=== PATIENT | male | born 1990 | race Caucasian/White ===

== ENCOUNTER 2016-08-23 14:23 | Emergency (ER) | payer BC, OTHER ==
[2016-08-23] MEDS ORDERED: DIPHTH,PERTUSS(ACELL),TET VAC 0.5 ML VIAL IM ONE ×2 (16:24→16:26)
[2016-08-23 16:34] VITALS: BP 140/79
--- OUTSIDE RECORDS SUMMARY | 2016-08-23 16:35 | XMS REPORT | Continuity of Care Document ---
:1990 Author Organization [facility] ([facility]) Address [address] [place] [address] Phone [phone] Care Team Providers Name Role Phone Unavailable Primary Care Provider Unavailable Source Comments This disclosure is being made pursuant to the Care Everywhere program, applicable federal and state laws, and may not contain all informaitonavailable regarding this patient.[facility] ([facility]) Active Allergies and Adverse Reactions Not on File Current Medications Not on file Active Problems Not on file Social History Tobacco Use Types Packs/Day Years Used Date Never Assessed Plan of Care Health Maintenance Due Date Last Done Comments Hepatitis B Vaccine (1 of 3 - Primary Series) 1990 HPV Vaccine (1 of 3 - Male 3 Dose Series) 2001 Tdap Vaccine 2001 Lipid Disorder Screening 01/29/2008 MMR Vaccine 01/29/2008 Td Vaccine 01/29/2008 Varicella Vaccine (1 of 2 - Adult - No Evidence of 01/29/2008 Immunity) Influenza Vaccine: Seasonal (#1) 11/19/2015 Results from Last 3 Months Not on file
--- NOTE | 2016-08-23 16:56 | ERNOTE ---
Medical Problem HPI - Narrative Date of Service: 08/23/16 - General Chief Complaint: Laceration Time Seen by Provider: 08/23/16 16:23 Source: patient Exam Limitations: no limitations - Immun/Allergies/Home Medications Immunizations: IMMUNIZATION HX Immunizations Up to Date Yes History of Influenza Vaccine No Hx Pneumococcal Vaccination No Allergies/Adverse Reactions: Allergies No Known Allergies Allergy (Verified 08/23/16 16:20) Home Medications: HOME MEDICATIONS NK [No Home Medication] 01/18/14 [Last Taken Unknown] - History of Present History Narrative: 26 room now presents to the emergency room for a laceration to his right knee area. Patient states he was using a rotary fabric blade while he was cutting cardboard and cut through the cardboard strike his right leg. Patient stated this happened this morning. States he glued the wound closed at home with superglue. Patient currently has no c/o pain to area but was brought in buy his girlfriend. Date (Duration): 08/23/16 Timing: resolved prior to arrival Severity: mild Modifying Factors - (Improves): Present: immobilization Review of Systems - Review of Systems Constitutional: Present: no symptoms reported EYE: Present: no symptoms reported ENT: Present: no symptoms reported Respiratory: Present: no symptoms reported Cardiology: Present: no symptoms reported Gastrointestinal/Abdominal: Present: no symptoms reported Genitourinary: Present: no symptoms reported Musculoskeletal: Present: no symptoms reported Skin: Present: See HPI Neurological: Present: no symptoms reported Endocrine: Present: no symptoms reported Hematologic/Lymphatic: Present: no symptoms reported Psych: Present: no symptoms reported All Other Systems: All systems neg except as marked - Patient's Past Medical History Patient History - Medical: No pertinent hx Patient History - Cardiac/Respiratory: No pertinent hx Patient History - Cancer: No Hx of Cancer Patient History - Surgical Procedures: T & A Patient History - Other: None - Social History Living Situations: home Abuse History: No History of abuse Psych History: No pertinent hx Smoking Status: Never smoker Alcohol Use: occasionally Drug Use: none - Immunizations Immunizations Up to Date: Yes Hx Pneumococcal Vaccination: No History of Influenza Vaccine: No Physical Exam - Physical Exam Narrative: patient has a 3cm superficial abrasion to his right upper knee. There is glue surrounding the wound but none appreciated in the wound bed. Wound bed is pink and laceration is very superficial. General Appearance: Present: wd/wn, alert, no apparent distress Eye Exam: Normal inspection: bilateral Ears, Nose, Throat: Present: normal ENT inspection, normal pharynx Neck: Present: normal inspection Respiratory: Present: no respiratory distress, normal breath sounds, no accessory muscle use, lungs clear. Absent: respiratory distress Cardiovascular/Chest: Present: regular rate, rhythm, no murmur, normal peripheral pulses. Absent: irregularly irregular Peripheral Pulses: N=norm/S=strong/W=weak/B=bound/A=absent: Radial (R): Normal, Radial (L): Normal, Dorsalis-pedis (R): Normal, Dorsalis-pedis (L): Normal Gastrointestinal/Abdominal: Present: normal bowel sounds, nontender, nondistended, soft. Absent: tenderness, abnormal bowel sounds Back Exam: Present: normal inspection, normal range of motion, no CVA tenderness , no vertebral tenderness Extremity Exam: Present: normal except - - laceration, normal range of motion, no edema, other. Absent: decreased range of motion, joint redness, joint swelling, extremity edema Neurological Exam: Present: alert, oriented, normal mood/affect, no motor/ sensory deficits Skin Exam: Present: normal color, warm/dry Lymphatic Exam: Present: no adenopathy ED Progress - Results and Orders Patient's Lab Results:: I have reviewed the patient's lab results. - Vital Signs Vital Signs: Vital Signs 08/23/16 14:43 Temperature 36.7 C Pulse Rate 89 Respiratory 16 Rate Blood Pressure 150/85 O2 Sat by Pulse 98 Oximetry - Progress/Reassessment Chief Complaint: Laceration Progress:: Unchanged Departure - Departure Clinical Impression: Laceration Disposition: Home self-care Condition: Good Instructions: Laceration Care, Adult, [id number], Nonsutured Laceration Care Additional Instructions: Continue previous home medications. Return to the emergency room if wound starts to bleed or develop signs and symptoms of infection. Follow-up with her primary care next 2-3 days if needed.
== END 2016-08-23 16:58 | disposition home or self-care (01) ==
LOC: ER 14:23
DX: S81.011A Laceration without foreign body, right knee, initial encounter (principal); W26.8XXA Contact with other sharp object(s), not elsewhere classified, initial encounter; Z23 Encounter for immunization

== ENCOUNTER 2016-11-18 13:34 | Emergency (ER) | payer BC ==
[2016-11-18 13:40] VITALS: BP 139/81
[2016-11-18] MEDS ORDERED: NAPROXEN SODIUM 550 MG TABLET PO ONE (14:23)
[2016-11-18] MEDS ORDERED: predniSONE 20 MG TABLET PO ONE (14:23)
--- NOTE | 2016-11-18 14:29 | ERNOTE ---
Lower Extremity HPI - Narrative Date of Service: 11/18/16 - General Lower Extremities Pain: ankle: left Time Seen by Provider: 11/18/16 14:04 Source: patient, RN notes reviewed Exam Limitations: no limitations - Immun/Allergies/Home Medications Immunizations: IMMUNIZATION HX Immunizations Up to Date Yes History of Influenza Vaccine No Hx Pneumococcal Vaccination No Allergies/Adverse Reactions: Allergies Allergy/AdvReac Type Severity Reaction Status Date / Time No Known Allergies Allergy Verified 11/18/16 13:40 Home Medications: HOME MEDICATIONS Naproxen [Naprosyn] 500 mg PO BID #20 tablet 11/18/16 [Last Taken Unknown] predniSONE [Prednisone] 2 tab PO DAILY #12 tab 11/18/16 [Last Taken Unknown] - History of Present Illness Narrative: Duane is a 26 year old male who presents to the ED by private vehicle for an exacerbation of gout in his left lateral ankle. His first attack was 4 years ago. He had only had 2 episodes until this month, during which he has had 3 attacks. He has not taken anything for his symptoms. He was last treated with colchicine and prednisone. Date (Duration): 11/18/16 Method of Injury: Reports: no apparent injury Subsequent Symptoms: Denies: sensory loss, numbness, motor loss Prior Treament: Reports: similar symptoms before Review of Systems - Review of Systems Constitutional: Absent: recent illness, fever, chills EYE: Present: no symptoms reported ENT: Present: no symptoms reported Respiratory: Absent: shortness of breath, cough Cardiology: Absent: chest pain, edema, claudication Gastrointestinal/Abdominal: Absent: vomiting, diarrhea Genitourinary: Present: no symptoms reported Musculoskeletal: Present: joint pain, joint swelling Skin: Present: change in color. Absent: rash, lesions Neurological: Absent: weakness, numbness, tingling Endocrine: Present: no symptoms reported Hematologic/Lymphatic: Present: no symptoms reported Psych: Present: no symptoms reported - Patient's Past Medical History Patient History - Medical: Other Patient History - Cardiac/Respiratory: No pertinent hx Patient History - Cancer: No Hx of Cancer Patient History - Surgical Procedures: T & A, Orthopedic Patient History - Other: None - Social History Living Situations: home Abuse History: No History of abuse Psych History: No pertinent hx Alcohol Use: occasionally Drug Use: none - Immunizations Immunizations Up to Date: Yes Hx Pneumococcal Vaccination: No History of Influenza Vaccine: No Physical Exam - Physical Exam General Appearance: Present: wd/wn, alert, no apparent distress Neck: Present: normal inspection, nontender, supple Respiratory: Present: no respiratory distress, normal breath sounds, no accessory muscle use, lungs clear Cardiovascular/Chest: Present: regular rate, rhythm, no murmur, normal peripheral pulses Extremity Exam: Present: normal range of motion, joint redness - Left lateral ankle, joint swelling - Mild, left lateral ankle Neurological Exam: Present: alert, oriented, normal mood/affect, no motor/ sensory deficits Skin Exam: Present: normal color, warm/dry ED Progress - Vital Signs Patient's Vital Signs:: I have reviewed the patient's vital signs. Vital Signs: Vital Signs 11/18/16 13:38 Temperature 36.4 C L Pulse Rate 104 H Respiratory 17 Rate Blood Pressure 139/81 O2 Sat by Pulse 99 Oximetry - Progress/Reassessment Chief Complaint: Lower Extremity Pain/ Injury Progress:: Unchanged Departure Clinical Impression: Gout attack Qualifiers: Gout site: ankle Gout etiology: unspecified cause Laterality: left Qualified Code(s): M10.9 - Gout, unspecified - Departure Disposition: Home Follow Up Needed Condition: Stable Instructions: Gout, [id number] Referrals: Samia Cardoso DO [Primary Care Provider] - Prescriptions: Naproxen [Naprosyn] 500 mg PO BID #20 tablet predniSONE [Prednisone] 2 tab PO DAILY #12 tab
[2016-11-18] MEDS ORDERED: predniSONE 20 MG TABLET ONE (14:31)
[2016-11-18] MEDS ORDERED: NAPROXEN SODIUM 550 MG TABLET ONE (14:31)
== END 2016-11-18 14:36 | disposition home or self-care (01) ==
LOC: ER 13:34
DX: M10.9 Gout, unspecified (principal)